=== PATIENT | female | born 1985 | race Caucasian/White ===

== ENCOUNTER 2018-12-31 10:55 | Inpatient (IN) | payer MEDICAID ==
[~2018-12-31] VITALS: Ht 157.5 cm; Wt 107.9 kg
[~2018-12-31 10:55] MED LIST: CALC-649 PO; PREN1TAB49 PO
[2018-12-31] MEDS ORDERED: OXYTOCIN 30 UNITS/LR 500 ML IV SCH ×2 (11:00→17:52)
[2018-12-31] MEDS ORDERED: METHYLERGONOVINE 0.2 MG INJ IM PRN ×2 (11:00→18:00)
[2018-12-31] MEDS ORDERED: CEFAZOLIN 2 GM/50 ML (PMX) 50 ML IVPB SCH (11:00)
[2018-12-31] MEDS ORDERED: OXYTOCIN 30 UNITS/LR 500 ML IV PRN ×2 (11:00→18:00)
[2018-12-31] MEDS ORDERED: CARBOPROST 250 MCG INJ IM PRN ×2 (11:00→18:00)
[2018-12-31] MEDS ORDERED: MISOPROSTOL 200 MCG TAB PR PRN ×2 (11:00→18:00)
[2018-12-31 11:28] VITALS: Ht 157.5 cm; Wt 107.9 kg
[2018-12-31 11:29] VITALS: BP 114/75; PULSE 81; RESP 20
[2018-12-31] MEDS: LACTATED RINGER'S 1,000 ML IV SCH ×2 (11:35→11:58)
[2018-12-31] MEDS ORDERED: ONDANSETRON 4 MG INJ IV STA (11:35)
[2018-12-31] MEDS ORDERED: METOCLOPRAMIDE 10 MG INJ IV ONE (12:00)
--- NOTE | 2018-12-31 12:38 | PREAC ---
Date/Time of Note Date/Time of Note DATE: 12/31/18 TIME: 12:37 Anesthesia Eval and Record Evaluation Time Pre-Procedure Interview DATE: 12/31/18 TIME: 12:37 Age 33 Sex female NPO: 8 hrs Preoperative diagnosis Planned procedure repeat c/s Past Medical History Past Medical History: Includes GI: Morbid obesity Surgery & Anesthesia Issues No known issue Meds Anticoagulation: No Beta Blessing within 24 hr: No Reason Beta Blessing not given: Pt. not on B-Blessing Reported Medications Calcium Carbonate (Calcium) 1 Tab Tablet, 1 TAB PO DAILY 06/27/12 Vits W-Ca,Fe,Fa(<1MG) () 1 Tab Tablet, 1 TAB PO DAILY 06/27/12 Current Medications Lactated Ringer's 1,000 ml @ 125 mls/hr Q8H IV Last administered on 12/31/18at 11:58; Admin Dose 125 MLS/HR; Start 12/31/18 at 11:00 Cefazolin Sodium/ Dextrose 50 ml @ 100 mls/hr ONCE IVPB ; Start 12/31/18 at 11:00 Oxytocin/Lactated Ringer's 500 ml @ 125 mls/hr POST IV ; Start 12/31/18 at 11:00 Oxytocin/Lactated Ringer's 500 ml @ 0 mls/hr ONCE PRN IV .VAGINAL BLEEDING; Start 12/31/18 at 11:00 Methylergonovine Maleate (Methergine) 0.2 mg ONCE PRN IM .VAGINAL BLEEDING; Start 12/31/18 at 11:00 Carboprost Tromethamine (Hemabate) 250 mcg ONCE PRN IM .VAGINAL BLEEDING; Start 12/31/18 at 11:00 Misoprostol (Cytotec) 1,000 mcg ONCE PRN LA .VAGINAL BLEEDING; Start 12/31/18 at 11:00 Meds reviewed: Yes Allergies Coded Allergies: No Known Allergies (Verified Allergy, Unknown, 06/27/18) Allergies Reviewed: Yes Labs/Studies Labs Reviewed: Reviewed by anesthesiologist Result Diagram: 12/31/18 1124 Laboratory Tests 12/31/18 11:24 Blood Bank Test 12/31/18 11:24 Antibody Screen NEGATIVE Blood Type O POSITIVE Rh Immune Globulin Candidate NO test: Positive Pre-procedure Exam Last vitals Vital Signs Date Temp Pulse Resp B/P (MAP) Pulse Ox O2 O2 Flow FiO2 Time Delivery Rate 12/31/18 98.2 81 20 114/75 Room Air 11:29 (88) Airway: Adequate mouth opening, Adequate thyromental dist Mallampati: Mallampati II Teeth: Normal Lung: Normal Heart: Normal ASA Physical Status ASA physical status: 2 Emergency: None Planned Anesthetic Neuraxial: Spinal Planned Pain Management Sub-arachniod narcotics Pre-operative Attestations Prior to commencing anesthesia and surgery, the patient was re-evaluated, there was verification of: *The patient's identity *The results of appropriate recent lab work and preoperative vital signs *The above evaluation not changing prior to induction *Anesthetic plan, risk benefits, alternative and complications discussed with patient/family; questions answered; patient/family understands, accepts and wishes to proceed. JOSE DE JESUS ESCOBAR December 31, 2018 12:38
[2018-12-31] MEDS ORDERED: FENTAnyl 50 MCG/ML VIAL IV PRN ×3 (13:00)
[2018-12-31] MEDS ORDERED: HYDROmorphONE 1 MG/5 ML IV SYRINGE IV PRN ×3 (13:00)
[2018-12-31] MEDS ORDERED: METOCLOPRAMIDE 10 MG INJ IV PRN (13:00)
[2018-12-31] MEDS ORDERED: ALBUTEROL 0.083% (NEB) 2.5 MG/3 ML AMP HHN PRN (13:00)
[2018-12-31] MEDS ORDERED: NALOXONE (0.4 MG/ML) INJ IV PRN (13:00)
[2018-12-31] MEDS ORDERED: DIPHENHYDRAMINE 50 MG INJ IV PRN ×2 (13:00)
[2018-12-31] MEDS ORDERED: KETOROLAC 30 MG INJ IV PRN (13:00)
[2018-12-31] MEDS ORDERED: ONDANSETRON 4 MG INJ IV PRN ×2 (13:00)
[2018-12-31] MEDS ORDERED: HYDROmorphONE 0.5 MG/0.5 ML SYG IV PRN ×2 (13:00)
[2018-12-31] MEDS ORDERED: OXYTOCIN 30 UNITS/LR 500 ML BAG IV ONE (14:00)
[2018-12-31] MEDS ORDERED: EPHEDrine 25 MG/5 ML SYG ONE (14:00)
[2018-12-31] MEDS ORDERED: PHENYLephrine (100 MCG/ML) 10ML SYG ONE (14:00)
--- NOTE | 2018-12-31 14:11 | HP ---
Date/Time of Note Date/Time of Note DATE: 12/31/18 TIME: 14:09 OB - History Hx of Present Free Text/Dictation 33 years old 3 para 2-0-0-2 with 2 previous delivery at 39 weeks with a DARIAN of 01/07/2019 admitted for repeat delivery. She states good movement. She denies nausea, vomiting, shortness of breath, chest pain, headache, visual changes, vaginal bleeding or LOF. Chief Complaint: Scheduled for repeat delivery Estimated Due Date: January 07, 2019 : 3 Para: 2 Spontaneous : 0 Therapeutic : 0 Care: Good Care Ultrasounds: Normal mid trimester US Obstetrical Complications: None Medical Complications: None Past Family/Social History * Past Medical, Surgical, Family and Obstetric Histories reviewed from chart. Blood Type: O+ Rubella: immune RPR/VDRL: Negative GBS Status: Unknown HBsAG: Negative OB Admission Exam Vital Signs Vital Signs Vital Signs Date Temp Pulse Resp B/P (MAP) Pulse Ox O2 O2 Flow FiO2 Time Delivery Rate 12/31/18 98.2 81 20 114/75 Room Air 11:29 (88) Physical Exam HEENT: WNL Heart: Rhythm Normal Lungs: Clear Abdomen: WNL Extremities: Normal Membranes: Intact Heart Rate: 130's Accelerations: Accelerations Present Decelerations: No Decelerations Varibility: Moderate Contractions on Admission: None Last 72 hours Lab Results CBC & BMP 12/31/18 11:24 OB Assessment/Plan Other plan: 33 years old 3 para 2-0-0-2 with 2 previous delivery at 39 weeks admitted for repeat delivery. - FHR: No sign of metabolic acidosis- Category I - Continuous EFM, toco - CBC, blood type and screen - Please see the orders - O+/Rubella: Immune - GBS: Unknown, no need for GBS prophylaxis as patient is not in labor and has intact membrane The risk of delivery including but not limited to bleeding, infection, injury to other organs (bowel, bladder, ureter, vessels, nerves), injury to fetus, blood transfusion, blood transfusion related infection, risk of anesthesia, adhesion, needs for future , removal of uterus or any other indicated surgery was discussed with the patient and her family. She expressed understanding. All of her questions were answered. She signed the informed consent. PHYSICIAN'S VERIFICATION OF INFORMED CONSENT The patient was counseled regarding the procedure, its indications, risks, potential complications and alternatives and any questions were answered. Consent was obtained. PLANNED PROCEDURE/TREATMENT: delivery with possible using vacuum/forceps and any other indicated surgery PHYSICIAN'S VERIFICATION OF INFORMED CONSENT FOR BLOOD TRANSFUSION: There is a reasonable possibility that blood transfusion will be necessary as a result of the patient's procedure. I have discussed the following with the patient/patient's legal branch service representative: An explanation of the benefits and risks of the transfusion of blood or blood products and the possible alternatives. All questions have been answered to the patient's satisfaction. INFORMED CONSENT:The patient has been informed of: The nature of the proposed care, treatment, services, medications, interventions or procedures. Potential benefits, risks or side effects, including potential problems related to recuperation. The likelihood of achieving care treatment and service goals. Reasonable alternatives to the proposed care, treatment and service. The relevant risks, benefits and side effects related to alternatives, including the possible results of not receiving care, treatment and services. When indicated, any limitations on the confidentiality of information learned from or about the patient. If appropriate, the risks, benefits and alternatives of the drugs to be used for sedation/analgesia including moderate sedation. If appropriate, patient has been provided information on the risks, benefits and alternatives to the transfusion of blood and/or blood products. If appropriate, patient has been provided information regarding the [employer] Blood Act. ULICES TAO December 31, 2018 14:11
[2018-12-31] MEDS ORDERED: morphine SULFATE/PF (10 MG/10 ML) INJ ONE (14:46)
--- NOTE | 2018-12-31 17:06 | OPR ---
Operative Report Planned Procedure Procedure date December 31, 2018 Procedure(s) Repeat low transverse delivery Performed by see signature line Calker: KIERA PAZ MD Anesthesiologist: JOSE DE JESUS ESCOBAR Pre-procedure diagnosis 33 years old 3 para 2-0-0-2 with 2 previous delivery at 39 weeks desires repeat delivery [id number] Anesthesia Type: [id number] spinal Post-Procedure Post-procedure diagnosis 33 years old 3 para 2-0-0-2 with 2 previous delivery at 39 weeks desires repeat delivery Findings 1. Normal uterus, fallopian tubes and ovaries 2. Viable female in cephalic presentation. 8 at one minute and 9 in 5 minutes. Weight: 7 pounds 1 ounce. Time of delivery: 15:31 3. Placenta with three vessel cord 4. Amniotic fluid - Clear Estimated Blood Loss: 500 - 600 mls Specimen(s) none Grafts/Implant(s) none Complication(s) none Pt Condition post procedure: stable Disposition: PACU Procedure Description INDICATION AND HISTORY: A 33 years old 3 para 2-0-0-2 with 2 previous delivery at 39 weeks desires repeat delivery. The risk of delivery including but not limited to bleeding, infection, injury to other organs (bowel, bladder, ureter, vessels, nerves), injury to fetus, blood transfusion, blood transfusion related infection, risk of anesthesia, adhesion, needs for future , removal of uterus or any other indicated surgery was discussed with the patient and her family. She expressed understanding. All of her questions were answered. She signed the informed consent. DESCRIPTION OF OPERATION: The patient was taken to the operating room, where she was identified and the procedure was verified. The patient received two gram of Ancef 30 minutes prior to surgery. Spinal anesthesia was placed. The patient placed in the dorsal supine position with a left tilt. The heart rate was 136 bpm. The patient was then prepped and draped in the normal sterile fashion. A Pfannenstiel skin incision was made and carried down to the fascia with knife. The fascia was incised in the midline and the fascial incision was carried laterally with Fabian scissors. The superior portion of the fascial incision was then grasped with Elton clamps and tented up and dissected off the underlying rectus muscle with sharp dissection. The lower portion of the fascial incision was then made in a similar fashion. The rectus muscle was and the peritoneum was entered. The peritoneal incision was then stretched and a bladder blade was inserted. Then, an incision was made in the lower uterine segment in a transverse fashion with a knife and extended bluntly. The was delivered atraumatically in cephalic presentation with the above findings. Vacuum used to assist delivery of head. The umbilical cord was clamped and cut. The neonatology resuscitation team was present and the baby was handed to them. A cord blood sample was obtained for further evaluation. The placenta and membrane, which appeared normal were Removed. The uterus was exteriorized and cleared of all clot and debris. The uterus was then closed in a two layer fashion with 0-Monocryl. At the time of closure, hemostasis was noted. The gutters were irrigated. The peritoneum was reapproximated with 3-0 Vicryl. The muscle was reapproximated with 3-0 Vicryl. The fascia was approximated with 0- Vicryl in a running fashion. *The subcutaneous tissue was re approximated with 3-0 vicryl. The skin was closed with 4-0 Monocryl. All instruments, sponges and needle counts were correct x3. The patient tolerated the procedure well. She transferred to the recovery room in stable condition. ULICES TAO December 31, 2018 17:06
[2018-12-31] MEDS: DEXTROSE 5%-LR 1,000 ML IV SCH (17:52)
[2018-12-31] MEDS ORDERED: LANOLIN HPA 1 PKT TOP PRN (18:00)
[2018-12-31] MEDS ORDERED: METHYLERGONOVINE 0.2 MG TAB PO PRN (18:00)
[2018-12-31] MEDS ORDERED: MAGNESIUM HYDROXIDE 30ML CUP PO PRN (18:00)
[2018-12-31 18:20] VITALS: BP 120/58; PULSE 73; RESP 18
--- NOTE | 2018-12-31 19:43 | PAC ---
Date/Time of Note Date/Time of Note DATE: 12/31/18 TIME: 19:43 Post-Anesthesia Notes Post-Anesthesia Note Last documented vital signs Vital Signs Date Temp Pulse Resp B/P (MAP) Pulse Ox O2 O2 Flow FiO2 Time Delivery Rate 12/31/18 98.2 81 20 114/75 Room Air 11:29 (88) Activity: WNL Respiratory function: WNL Cardiovascular function: WNL Mental status: Baseline Pain reasonably controlled: Yes Hydration appropriate: Yes Nausea/Vomiting absent: Yes JOSE DE JESUS ESCOBAR December 31, 2018 19:43
[2018-12-31 19:45] VITALS: BP 99/55; PULSE 78; RESP 18
[2018-12-31] MEDS: SENNA/DOCUSATE NA (8.6MG/50MG) TAB PO SCH (21:26)
[2019-01-01 00:10] VITALS: BP 103/62; PULSE 82; RESP 18
[2019-01-01] MEDS: DEXTROSE 5%-LR 1,000 ML IV SCH ×3 (01:52→17:52)
[2019-01-01 03:42] VITALS: BP 95/55; PULSE 85; RESP 18
[2019-01-01] MEDS: KETOROLAC 30 MG INJ IV PRN ×2 (05:14→11:39)
[2019-01-01 07:20] VITALS: BP 95/46; PULSE 72; RESP 16
[2019-01-01] MEDS: SENNA/DOCUSATE NA (8.6MG/50MG) TAB PO SCH ×2 (09:39→21:14)
[2019-01-01] MEDS ORDERED: HYDROCODONE/APAP (5/325) TAB NGT PRN (11:00)
[2019-01-01] MEDS ORDERED: DIPHTH/TET/ACEL PERTUSS (ADULT) 0.5 ML VIAL IM* ONE (11:00)
[2019-01-01] MEDS ORDERED: HYDROCODONE/APAP (5/325) TAB GTB SCH (14:00)
[2019-01-01] MEDS ORDERED: IBUPROFEN 800 MG TAB PO SCH (14:00)
--- NOTE | 2019-01-01 15:58 | PN ---
Date/Time of Note Date/Time of Note DATE: 01/01/19 TIME: 15:56 OB Subjective Subjective Subjective Postoperative day #1 Status post repeat section Patient denies any nausea vomiting. Denies any fever or chills. Passed flatus. Breast-feeding. Reports decreased vaginal bleeding. OB Objective Objective Objective Appearance: Alert and oriented x4 does not appear to be in any acute distress Abdomen: Soft, fundus palpable and firm at the level of umbilicus with appropriate tenderness Incision clean dry and intact with appropriate tenderness over the incision Lungs: Clear to auscultation bilaterally CV: RRR VS - Last 72 Hours, by Label Date Temp Pulse Resp B/P (MAP) Pulse Ox O2 O2 Flow FiO2 Time Delivery Rate 01/01/19 98.3 72 16 95/46 (62) 96 Room Air 07:20 01/01/19 98.4 85 18 95/55 (68) 97 Room Air 03:42 01/01/19 99.0 82 18 103/62 94 00:10 (76) 12/31/18 98.6 78 18 99/55 (70) 95 Room Air 19:45 12/31/18 97.0 73 18 120/58 98 Room Air 18:20 (78) 12/31/18 98.2 81 20 114/75 Room Air 11:29 (88) Laboratory Tests Test 01/01/19 06:25 01/01/19 10:01 Lab Scanned Report REFERENCE LAB White Blood Count 20.3 #H Red Blood Count 3.32 L Hemoglobin 9.1 L Hematocrit 28.3 L Mean Corpuscular Volume 85.2 Mean Corpuscular Hemoglobin 27.4 L Mean Corpuscular Hemoglobin Concent 32.2 Red Cell Distribution Width 15.4 H Platelet Count 252 # Mean Platelet Volume 10.3 Immature Granulocytes % 2.700 H Neutrophils % 80.0 H Lymphocytes % 10.0 L Monocytes % 6.2 Eosinophils % 0.9 Basophils % 0.2 Nucleated Red Blood Cells % 0.0 Immature Granulocytes # 0.550 H Neutrophils # 16.2 H Lymphocytes # 2.0 Monocytes # 1.3 H Eosinophils # 0.2 Basophils # 0.1 Nucleated Red Blood Cells # 0.0 OB Assessment/Plan Other Assessment: Status post repeat section Postop day #1 Anemia, postop, asymptomatic Leukocytosis, likely reactive. Afebrile Follow-up with [facility] tomorrow Ambulation Routine postop care MARLEE MUÑIZ MD January 01, 2019 15:58
[2019-01-01 16:00] VITALS: BP 105/58; PULSE 86; RESP 16
[2019-01-01] MEDS: HYDROCODONE/APAP (5/325) TAB PO SCH ×2 (16:07→22:00)
[2019-01-01] MEDS: IBUPROFEN 800 MG TAB PO SCH ×2 (16:08→21:14)
[2019-01-01 19:50] VITALS: BP 115/65; PULSE 84; RESP 18
[2019-01-02 04:00] VITALS: BP 110/61; PULSE 85; RESP 18
[2019-01-02] MEDS: HYDROCODONE/APAP (5/325) TAB PO SCH ×3 (06:00→21:58)
[2019-01-02] MEDS: IBUPROFEN 800 MG TAB PO SCH ×3 (06:26→21:57)
[2019-01-02 08:00] VITALS: BP 116/66; PULSE 100; RESP 18
[2019-01-02] MEDS: HYDROCODONE/APAP (5/325) TAB PO PRN ×2 (08:58→13:15)
[2019-01-02] MEDS: SENNA/DOCUSATE NA (8.6MG/50MG) TAB PO SCH ×2 (08:58→21:57)
[2019-01-02 15:50] VITALS: BP 113/55; PULSE 86; RESP 18
--- NOTE | 2019-01-02 18:43 | QN ---
Documentation Comment no c/o b.m + abdomen soft wound dry calf neg lochia min A stable s/p C/s #2 WBC 20.300 P repeat CBC in am KIERA PAZ MD January 02, 2019 18:43
[2019-01-02 20:10] VITALS: BP 101/66; PULSE 90; RESP 18
[2019-01-03 03:52] VITALS: BP 106/66; PULSE 76
[2019-01-03] MEDS: IBUPROFEN 800 MG TAB PO SCH ×2 (05:51→14:00)
[2019-01-03] MEDS: HYDROCODONE/APAP (5/325) TAB PO SCH ×2 (05:52→14:00)
[2019-01-03 07:45] VITALS: BP 119/71; PULSE 77; RESP 18
[2019-01-03] MEDS ORDERED: DIPHTH/TET/ACEL PERTUSS (ADULT) 0.5 ML VIAL IM* ONE (09:00)
[2019-01-03] MEDS ORDERED: MEASLES,MUMPS,RUBELLA VACCINE INJ SC* ONE (09:00)
[2019-01-03] MEDS: SENNA/DOCUSATE NA (8.6MG/50MG) TAB PO SCH (09:17)
--- NOTE | 2019-01-04 13:37 | DS ---
Date/Time of Note Date/Time of Note DATE: 01/04/19 TIME: 13:35 Obstetrical Discharge Record Final Diagnosis Final Diagnosis: Term delivered Other Final Diagnosis Postop day #3 Status pos repeat Patient stable and afebrile Patient is ambulating, tolerating regular diet, voiding and positive flatus Vital signs stable Hematology - 72 Hrs Test 01/03/19 07:20 Hematocrit 27.6 % (37.0-47.0) L Hemoglobin 8.8 g/dl (12.0-16.0) L Mean Corpuscular Hemoglobin 27.8 pg (29.0-33.0) L Mean Corpuscular Hemoglobin Concent 31.9 g/dl (32.0-37.0) L Mean Corpuscular Volume 87.3 fl (82.0-101.0) Mean Platelet Volume 10.5 fl (7.4-10.4) H Platelet Count 270 10^3/UL (140-415) Red Blood Count 3.16 10^6/ul (4.20-5.40) L Red Cell Distribution Width 15.6 % (11.5-14.5) H White Blood Count 16.9 10^3/ul (4.8-10.8) H Abdomen soft, fundus firm Incision clean, dry, intact Extremities nontender Assessment and plan Patient stable and doing well Plan to discharge home Patient instructed to follow-up with 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 in 2 and 6 weeks Section Section: Repeat Condition on Discharge Physical Assessment Last Vitals: VS - Last 72 Hours, by Label Date Temp Pulse Resp B/P (MAP) Pulse Ox O2 O2 Flow FiO2 Time Delivery Rate 01/03/19 97.9 77 18 119/71 Room Air 07:45 (87) 01/03/19 98.2 76 106/66 Room Air 03:52 (79) 01/02/19 98.3 90 18 101/66 Room Air 20:10 (78) 01/02/19 98.2 86 18 113/55 Room Air 15:50 (74) 01/02/19 98.3 100 18 116/66 08:00 (83) 01/02/19 98.0 85 18 110/61 Room Air 04:00 (77) 01/01/19 98.2 84 18 115/65 Room Air 19:50 (82) 01/01/19 98.5 86 16 105/58 95 Room Air 16:00 (74) Voiding: Yes Bowel Movement: Yes Breast: Soft, non-tender Fundus: Firm Calf Tenderness: No Patient Condition: Good Copies To: CC: ULICES TAO ; GERALDO CEJA MD January 04, 2019 13:37
--- NOTE | 2019-01-04 17:55 | DELSUM ---
Delivery Summary A-C Datetime Report Generated by CPN: 01/04/2019 17:55 DELIVERY PERSONNEL Tool Pusher: Robert, Nahomy MATERNAL INFORMATION Delivery Anesthesia: Spinal Medications in Delivery: see anesthesia record Delivery QBL (ml): 600 Placenta Cultured: No Maternal Complications: Other Other Maternal Complications: previous section LABOR SUMMARY EDC: 01/07/2019 00:00 No. Babies in Womb: 1 Attempted: No Labor Anesthesia: None LABOR INFORMATION Reason for Induction: Not Applicable Oxytocin: N/A Group B Beta Strep: Done, Result Unknown Antibiotics # of Doses: 1 Antibiotics Time of Last Dose: 12/31/2018 15:03 Steroids Given: None Reason Steroids Not Administered: Not Applicable MEMBRANES Membranes Rupture Method: Artificial Rupture of Membranes: 12/31/2018 15:29 Length of Rupture (hr): 0.03 Amniotic Fluid Color: Clear Amniotic Fluid Amount: Small Amniotic Fluid Odor: None STAGES OF LABOR Stage 3 hr: 0 Stage 3 min: 2 CSECTION DELIVERY Primary Indication: Repeat Elective Secondary Indication: N/A CSection Urgency: Non Elective CSection Incidence: Repeat Labor: No Labor Elective: Nonelective CSection Incision: Lower Uterine Transverse BABY A INFORMATION Delivery Date/Time: 12/31/2018 15:31 Method of Delivery: Born in Route : No : N/A Forceps: N/A Vacuum Extraction: N/A Shoulder Dystocia : N/A ASSISTED DELIVERY BABY A Vacuum Number of Pulls: 3 Vacuum Number of PopOffs: 3 Vacuum Mail List Processor: KIWI Total Time Vacuum Applied: 45 SEC Vacuum/Forceps Comment: vacuum applied in c/s while attempting to delivery through abdominal cavaity. 3 different kiwi vacuums used due to break in sterility. SHOULDER DYSTOCIA BABY A Delivery Date/Time: 12/31/2018 15:31 PRESENTATION/POSITION BABY A Presentation: Cephalic Cephalic Presentation: Vertex Breech Presentation: N/A PLACENTA INFORMATION BABY A Placenta Delivery Time : 12/31/2018 15:33 Placenta Method of Delivery: Manual Removal Placenta Status: Delivered SCORES BABY A Heart Rate 1 min: >100 bpm Resp Effort 1 min: Good Cry Reflex Irritability 1 min: Cough/Sneeze/Pulls Away Muscle Tone 1 min: Active Motion Color 1 min: Blue/Pale Resuscitation Effort 1 min: Tactile Stimulation SCORE 1 MIN: 8 Heart Rate 5 min: >100 bpm Resp Effort 5 min: Good Cry Reflex Irritability 5 min: Cough/Sneeze/Pulls Away Muscle Tone 5 min: Active Motion Color 5 min: Body [place], Extremit Blue Resuscitation Effort 5 min: Tactile Stimulation SCORE 5 MIN: 9 INFANT INFORMATION BABY A Gestational Age at Delivery: 39.0 Gestational Status: Full Term- 39- 40.6 Weeks Infant Outcome : Liveborn Condition : Stable Sex: Female IDENTIFICATION/MEDS BABY A ID Band Number: [id number] ID Band Location: Right Leg; Left Arm Sensor Applied: Yes Sensor Number: [id number] Sensor Location : Cord Clamp Vitamin K Given : Not Given Erythromycin Given: Not Given WEIGHT/LENGTH BABY A Infant Birthweight (gm): 3210 Infant Weight (lb): 7 Weight (oz): 1 Infant Length (in): 20.00 Infant Length (cm): 50.80 CORD INFORMATION BABY A No. Cord Vessels: 3 Nuchal Cord : N/A Cord Blood Taken: Yes Infant Suction: Mouth; Nose ASSESSMENT BABY A Complications: None Physical Findings at Delivery: Within Normal Limits Infant Respirations: Appears Normal Dock Builder/ALS Called : No Care By: Poppy BROUSSARD Transferred To: Remains with Mother
== END 2019-01-03 17:55 | disposition home or self-care (01) | DRG 788 ==
LOC: L-D 10:55 → PP1 18:07
PROVIDERS: ADMIT Obstetrics & Gynecology; ATTEND Obstetrics & Gynecology
PROC: 10D00Z1 Extraction of Products of Conception, Low, Open Approach (ICD-10-PCS; principal; 2018-12-31 12:30)
DX: O34.219 Maternal care for unspecified type scar from previous cesarean delivery (principal); O99.214 Obesity complicating childbirth; E66.01 Morbid (severe) obesity due to excess calories; O90.81 Anemia of the puerperium; Z3A.39 39 weeks gestation of pregnancy; Z37.0 Single live birth
CPT/HCPCS: 85025; 85610; 85730; 86592; 86850; 86900; 86901; 87340; 99464; J0690; J1885; J2210; J2274; J2370; J2405; J2590; J2765; J3010; J7120; J7121